=== PATIENT | male | born 1935 | race Caucasian/White ===

== ENCOUNTER → 2017-05-04 | Outpatient (CLI) | payer BC | LOC: BMCIMAGING 08:47 | PROVIDERS: ATTEND Family Medicine | DX: S79.912A Unspecified injury of left hip, initial encounter (principal) ==

== ENCOUNTER → 2017-12-18 | Outpatient (CLI) | payer BC | LOC: FLAB 07:45 | DX: M51.36 Other intervertebral disc degeneration, lumbar region (principal); M41.26 Other idiopathic scoliosis, lumbar region ==

== ENCOUNTER → 2017-12-23 | Outpatient (CLI) | payer BC | LOC: FIMAGING 19:15 | PROVIDERS: ATTEND Physician Assistant | DX: M51.36 Other intervertebral disc degeneration, lumbar region (principal); M48.061 Spinal stenosis, lumbar region without neurogenic claudication ==

== ENCOUNTER 2018-02-03 | Day surgery (SDC) | payer BC | END 2018-02-03 12:11 | disposition home or self-care (01) | PROC: 01NB0ZZ Release Lumbar Nerve, Open Approach (ICD-10-PCS; principal; 2018-02-03) | PROC: 00NY0ZZ Release Lumbar Spinal Cord, Open Approach (ICD-10-PCS; principal; 2018-02-03) | DX: M48.062 Spinal stenosis, lumbar region with neurogenic claudication (principal); M54.16 Radiculopathy, lumbar region; M51.36 Other intervertebral disc degeneration, lumbar region; M41.9 Scoliosis, unspecified; I10 Essential (primary) hypertension; I48.91 Unspecified atrial fibrillation ==

== ENCOUNTER → 2018-12-21 | Outpatient (CLI) | payer BC | LOC: FIMAGING 12:31 ==